=== PATIENT | male | born 1950 | race Caucasian/White ===

== ENCOUNTER → 2023-10-29 13:46 | Outpatient (REF) | payer MEDICARE, OTHER, SELFPAY ==
--- NOTE | 2023-10-29 16:09 | W.PN.UPDATE ---
Update Note
Progress Note Update
patient presented for stress echo today ordered at time of last office visit 04/2023. he was noted to be in aflutter, asymptomatic. CTSP in cardiac services to discuss. after discussion with patient regarding CVA risk, he is agreeable to start
eliquis 5mg BID. He will stop asa. He is rate controlled so will not add meds at this time. He reports some mild SOB with going up a hill on his walk with his dogs however otherwise remains active playing handball, tennis, and walking several miles
a day. He is without evidence of acute CHF at this time - reports no LE edema, weight gain. He was surprised to hear he was in aflutter today. He has had 3 prior ablations. He has been arranged for follow up with Rosa 11/04/23 at 10AM to discuss
further options.
== END ==
LOC: RCS 13:46
PROVIDERS: ATTENDING PHYSICIAN Internal Medicine Cardiovascular Disease
DX: I48.0 Paroxysmal atrial fibrillation (principal)
CPT/HCPCS: 93017; 93306; 93350

== ENCOUNTER 2023-11-29 09:04 | Day surgery (SDC) | payer MEDICARE, OTHER, SELFPAY ==
--- NOTE | 2023-11-29 10:34 | ITS.CL.CARDI ---
Zigzag Stitcher - Cardioversion
Cardioversion
Procedure Report:
Procedure: Direct current electrical cardioversion
Pre-operative diagnosis: Persistent atrial flutter
Post-operative diagnosis: Persistent atrial flutter status post DC cardioversion to sinus rhythm
Anesthesia: MAC
Attending Physician: Ezra Hernandez MD
Procedure Description: The patient was brought to the electrophysiology laboratory in the fasting state. Adherence to anticoagulation regimen was confirmed. Informed consent was obtained from the patient prior to the start of the procedure.
Electrodes were placed on the patient and connected to an external defibrillator. Monitoring of blood pressure, ECG tracings, and pulse oximetry was initiated. The pads were applied to the patient in the anterior and posterior positions. The patient
was sedated by the anesthesiologist. A 50 joule biphasic synchronized shock was delivered to the patient under MAC anesthesia. Sinus rhythm was successfully restored. The patient recovered uneventfully from MAC anesthesia. There were no immediate
post-procedure complications. The patient left the lab in good condition. The attending physician was present throughout the entire procedure.
Impression: Successful direct current cardioversion with scientologist of sinus rhythm after one 50 joule biphasic synchronized shock.
== END 2023-11-29 11:11 | disposition home or self-care (01) ==
LOC: CATH 09:04
PROVIDERS: ATTENDING PHYSICIAN Internal Medicine Cardiovascular Disease; FAMILY PHYSICIAN Family Medicine; OTHER PHYSICIAN Internal Medicine Cardiovascular Disease
DX: I48.92 Unspecified atrial flutter (principal); I48.0 Paroxysmal atrial fibrillation; I11.0 Hypertensive heart disease with heart failure; I50.9 Heart failure, unspecified; I34.0 Nonrheumatic mitral (valve) insufficiency; Z79.01 Long term (current) use of anticoagulants
CPT/HCPCS: 92960; 93005

== ENCOUNTER → 2024-07-09 09:00 | Outpatient (REF) | payer MEDICARE, OTHER, SELFPAY ==
[2024-07-09 11:13] LABS: % Basophils 1.7 % (0-2); % Eosinophils 3.1 % (0-6); % Immature Granulocytes 0.7 % (0-0.5); % Lymphocytes 27.3 % (20.5-51.1); % Monocytes 13.8 % (1.7-9.3); % Neutrophils 53.4 % (42.2-75.2); Absolute Basophils 0.1 10^3/uL (0-0.2); Absolute Eosinophils 0.1 10^3/uL (0-0.7); Absolute Lymphocytes 1.2 10^3/uL (1.2-3.4); Absolute Monocytes 0.6 10^3/uL (0.1-0.6); Absolute Neutrophils 2.3 10^3/uL (1.4-6.5); Hematocrit 41.3 % (39.0-52.0); Hemoglobin 14.7 g/dL (13.0-18.0); Mean Corp Hgb Conc. 35.6 g/dL (33.0-37.0); Mean Corpuscular Hgb 32.7 pg (27.0-31.0); Mean Corpuscular Volume 91.8 fL (80.0-94.0); Mean Platelet Volume 9.6 fL (7.4-10.4); Nucleated Red Blood Cells % 0 % (-); Platelet Count 233 10^3/uL (130-400); Red Cell Dist. Width 11.9 % (11.5-14.5); White Blood Cell Count 4.2 10^3/uL (4.8-10.8)
[2024-07-09 11:16] LABS: INR 0.81; PT 11.7 Sec (11.4-14.6)
[2024-07-09 11:25] LABS: ALT (SGPT) 43 U/L (0-50); AST (SGOT) 43 U/L (17-59); Albumin 4.3 g/dl (3.5-5.0); Alkaline Phosphatase 104 U/L (38-126); Blood Urea Nitrogen 20 mg/dl (9-20); Calcium 9.4 mg/dl (8.4-10.2); Carbon Dioxide 27 mmol/L (22-30); Chloride 104 mmol/L (98-107); Glucose 107 mg/dl (70-99); Potassium 4.9 mmol/L (3.5-5.1); Sodium 138 mmol/L (135-145); Total Bilirubin 0.3 mg/dl (0.2-1.3); Total Protein 6.9 g/dl (6.3-8.2); eGFR > 60.00
== END ==
LOC: SDSPAT 09:00
PROVIDERS: ATTENDING PHYSICIAN Internal Medicine Cardiovascular Disease
DX: I48.0 Paroxysmal atrial fibrillation (principal)
CPT/HCPCS: 36415; 80053; 83735; 85025; 85610; 86850; 86900; 86901; 93005

== ENCOUNTER 2024-08-05 10:37 | Day surgery (SDC) | payer MEDICARE, OTHER, SELFPAY ==
--- NOTE | 2024-07-09 10:26 | HPS.HSE ---
Family Physician
-
Family Physician: NO INTERVIEW UNKNOWN
Chief Complaint
-
Paroxysmal atrial fibrillation. Atypical atrial flutter.
History of Present Illness
The patient is a 74 year old male presenting today for paroxysmal atrial fibrillation. He was first diagnosed with this arrhythmia in the late . He does report a history of rapid heart beat and dyspnea noted with physical activity
secondary to this diagnosis. He has undergone multiple cardioversions and 3 pulmonary vein isolations for his arrhythmia. He is on no current pharmacological therapy but does report previously taking Toprol-XL and Propafenone as needed. He presented
for a stress echocardiogram in October 2023 and was noted to be in asymptomatic atrial flutter. It is recommended he proceed with recurrent pulmonary vein isolation at this time for his atrial arrhythmias. He will be restarted on Eliquis in
preparation for his procedure. His CHADS-VASc is notably 3. He denies any current complaints today such as chest pain, shortness of breath at rest, palpitations, nausea, vomiting, diarrhea, lightheadedness, dizziness, cough, sore throat, or fever.
Medical History
Past Medical History
Past Medical History: Reports Other
Additional Past Medical History:
1. Paroxysmal atrial fibrillation and atypical atrial flutter, status post cardioversion x5 and pulmonary vein isolation x3; restarted on Eliquis 07/09/2024 for oral anticoagulation.
2. Hypertension.
3. First degree AV block.
4. Right bundle branch block.
5. Congestive heart failure, preserved ejection fraction.
6. Mild mitral regurgitation.
7. Mild tricuspid regurgitation.
8. Irritable bowel syndrome.
9. Osteoarthritis, status post right total hip arthroplasty, 2002, bilateral total knee arthroplasty, 2009, and left total hip arthroplasty 2016.
10. Raynaud's disease.
11. MRSA positive nasal swab 2008.
12. Mild leukopenia.
Past Surgical History: Reports Other
Additional Past Surgical History:
1. Pulmonary vein isolation x3.
2. Cardioversion x5.
3. Transesophageal echocardiogram.
4. Bilateral total knee arthroplasty.
5. Right total hip arthroplasty.
6. Left total hip arthroplasty.
7. Left tibia-fibula repair.
8. Inguinal hernia repair.
9. Cystoscopy.
10. Colonoscopy x3.
Social History
Tobacco: Non-smoker
Alcohol: Other (He reportedly drinks 1 glass of wine weekly. )
Living: Other (He lives with his girlfriend in a 3 story home. )
Family History
Family History: Not pertinent
Allergies / Home Medications
Allergy/Medication List:
Home medications:
1. Eliquis 5 mg p.o. twice a day.
2. Ascorbic acid 1000 mg p.o. daily.
3. Ginkgo biloba 1 tablet p.o. daily.
4. Ginseng 1 dose p.o. daily.
5. Glucosamine 1,500 mg p.o. daily.
6. Lisinopril 20 mg p.o. daily.
7. Magnesium 1 tablet p.o. daily.
8. Mecobalamin 1 dose p.o. daily.
9. Multivitamin 1 tablet p.o. daily.
10. Potassium 1 dose p.o. daily.
11. Psyllium 1 dose p.o. daily.
Allergies: No known allergies.
Review of Systems
-
A 12 point ROS was completed and negative except as noted: Yes
Physical Exam
Vital Signs
Blood pressure 160/66. Heart rate 64. Respirations 18. Pulse ox 99% on room air.
Height 6 feet, 2 inches. Weight 102.2 kg. BMI 28.9.
Physical Exam
General: Well Developed, Well Nourished and No Apparent Distress
HEENT: NormoCephalic, Moist mucous membranes, Atraumatic and PERRLA
Respiratory: Clear
Cardiac: Regular Rhythm
GI: Soft, Non Tender and Non Distended
Musculoskeletal: No Edema and Normal Gait & Station
Skin: Warm and Dry
Neuro: AO x 3 and Nonfocal/grossly intact
Laboratory Results
-
DIAGNOSTIC STUDIES as of 07/09/2024: White blood cell count 4.2. Hemoglobin 14.7. Platelet count 233,000. PT 11.7. INR 0.81. Sodium 138. Potassium 4.9. BUN 20. Creatinine 0.8. Glucose 107. Calcium 9.4. Magnesium 2.0. AST 43. ALT 43. Albumin 4.3.
Type and screen B positive.
EKG 07/09/2024: Normal sinus rhythm.
Echocardiogram 10/29/2023: Normal left ventricular size, wall thickness, and systolic function. No regional wall motion abnormalities are seen. LV ejection fraction is 50%. Mild mitral regurgitation. Mild tricuspid regurgitation. Estimated pulmonary
artery pressure of 25-30 mmHg. No prior study available for comparison.
Nuclear stress test 10/29/2023: Normal stress echo imaging. No evidence of ischemia. Normal ST segment response to exercise. Atrial flutter/fibrillation at baseline. Patient last known to be in sinus rhythm. Average exercise tolerance.
Impression/Plan
-
IMPRESSION/PLAN:
1. Paroxysmal atrial fibrillation and atypical atrial flutter: The patient is in need of pulmonary vein isolation with Dr. Jose Dale on 08/05/2024. The benefits and risks of the procedure have been explained to the patient. The patient
understands these risks and wishes to proceed. He will begin oral anticoagulation with Eliquis starting 07/09/2024 and continue this without interruption prior to his ablation. A script for this medication with refills was sent to his pharmacy
07/09/2024. He will take no medications the morning of his procedure.
[2024-07-09 10:37] VITALS: BMI 28.9
[2024-08-05] VITALS (12 sets, daily range): BP systolic 129–159; BP diastolic 71–98; BMI 28.6
[2024-08-05 12:58] LABS: ACT-LR - POC 215 Seconds (116-155)
[2024-08-05 13:18] LABS: ACT-LR - POC 245 Seconds (116-155)
[2024-08-05 13:40] LABS: ACT-LR - POC 311 Seconds (116-155)
--- NOTE | 2024-08-05 17:16 | W.PN.UPDATE ---
Update Note
Progress Note Update
Pt seen post PFA. Right groin without ht/bleeding, non tender. Urinating without difficulty. Post EKG NSR w/inc RBBB, 80s, no acute changes. Resume eliquis tonight at usual time. Followup at [facility] as scheduled. Home later today if groin site/tele
remain stable.
--- NOTE | 2024-08-06 14:39 | ITS.CL.ABL ---
Band Sawmill Operator - Ablation
Ablation
Procedure Report:
ELECTROPHYSIOLOGIC STUDY AND POSSIBLE ABLATION
DATE: August 05, 2024
INDICATION:
Symptomatic Atrial Fibrillation and atrial flutter.
HISTORY: See H and P.
Symptomatic AF, poorly controlled with attempted medical therapy
PRESENTING RHYTHM: atrial flutter
HISTORY: See H and P.
Symptomatic AF, poorly controlled with attempted medical therapy.
'TIME-OUT': called and confirmed.
SEDATION/ANESTHESIA: provided via the anesthesia department using general anesthesia.
PROCEDURE:
Ultrasound Guidance with real-time visualization of needle insertion and vessel patency performed by ca for femoral venous Vascular Access. Images were taken and saved for the patient's permanent record. Imaging findings typical femoral venous
anatomy. Direct visualization of needle puncture into the femoral vein was observed and recorded.
A decapolar CS catheter was placed within the CS for mapping and pacing.
he was found to be in an atrial flutter at 220 ms with activation sequence proximal to distal in the coronary sinus catheter. Entrainment from the distal coronary sinus finds at outside the tachycardia circuit and entrainment from the proximal
coronary sinus findings within the tachycardia circuit.
The intracardiac ultrasound catheter was positioned in the RA for continuous intracardiac ultrasound imaging.
Heparin bolus and infusion to target ACT at 300 -350 seconds was administered.
the Dapper multipolar grid catheter was positioned in the right atrium to create an activation map. Activation is consistent with counterclockwise right atrial flutter. Furthermore entrainment from the lateral wall of the right atrium is within
the tachycardia circuit. Additionally entrainment from the cavotricuspid isthmus is within the tachycardia circuit. Next the fair R wave pulse field ablation catheter was substituted. Postelective field energy was delivered to the cavotricuspid
isthmus laterally. During creation of the CTI line, atrial flutter transition to atrial fibrillation. Next attention was turned to atrial fibrillation.Transseptal puncture was performed. This entailed advancing a sheath with dilator into the
superior vena cava and withdrawing both (monitoring intracardiac ultrasound, fluoroscopy and tip pressure) with the tip oriented toward the atrial septum. The fossa ovalis was engaged (indicated by sudden displacement of the sheath tip as well as
tenting of the fossa seen on intracardiac ultrasound).
The [employer] transseptal system was used. Left atrial catheter position was confirmed by echocardiographic imaging and fluoroscopy followed by RF delivery using the Correlix system resulting in successful LA access with pressure monitoring
demonstrating LA pressure waveforms (LA mean pressure 8 mm Hg). The sheath was advanced over the dilator and positioned in the left atrium.
The Kate Grid multipolar mapping catheter was initially positioned through the transseptal sheath for high density mapping.
Geometry and voltage mapping was performed using the Kate multipolar grid catheter. Ensite-X was utilized for three-dimensional electroanatomical mapping.
A 3-D map was created using Ensite-X in Voxel mode. A 3-D reconstructed CT image was compared to the 3-D Navex map to assist in anatomic evaluation, mapping and ablation.
Review of records from his previous ablation at [facility] notes that posterior wall ablation was performed. Mapping today demonstrates reconnection of the left superior pulmonary vein along the dome posteriorly and reconnection
of the posterior wall of the left atrium. The [employer] PFA catheter and system was used for cardiac ablation. Catheter positioning was guided and confirmed using both I.C.E. and fluoroscopy.
ablation strategy consisted of isolation of the left superior pulmonary vein and isolation of the posterior wall of the left atrium as an additional ablation lesion set. At the end of ablation mapping and pacing from the multipolar grid catheter
with a high density map finds electrical isolation both entrance and exit block at each of the pulmonary veins (LSPV, LIPV, RSPV, RIPV) as well as entrance and exit block at the posterior wall of the left atrium. Programmed electrical stimulation
was include burst atrial pacing as well as delivery of atrial decremental atrial stimuli failed to induce any arrhythmias. Catheters were withdrawn from the left atrium. The multipolar Kate grid catheter was repositioned in the right atrium for
mapping of the CTI in sinus rhythm. This finding In the CTI line. The Brumley pulsed field ablation catheter was then repositioned in the right atrium where additional energy was delivered at the CTI at approximately 7 o'clock position. Of note
nitroglycerin was delivered during any applications at the right atrium, both with the first attempted CTI prior to left atrial mapping and with this attempt at CTI ablation. There is no evidence of coronary spasm. No complications noted. With
delivery of pulse electric field ablation, bidirectional block is now observed both by activation mapping and differential pacing.
I.C.E. :
Pre-Ablation Post-Ablation
LVEF: 55 % 55 %
WMA: None None
Pericardial effusion: None None
COMPLICATIONS:
SUMMARY:
- Mapping and ablation to isolate the PVs
- Additional AF ablation set after PVI ( left atrial posterior wall ablation. )
- Mapping and ablation of second tachycardia ( Right atrial flutter)
- 3-D Electroanatomical Mapping
- Intracardiac Ultrasound
- Ultrasound guidance for vascular access
Post ablation, I discussed today's findings and results with the patient's friend, Angelita.
RECOMMENDATIONS:
- Observe in monitored bed.
- Maintain oral anticoagulation.
== END 2024-08-05 18:54 | disposition home or self-care (01) ==
LOC: CATH 10:37
PROVIDERS: ATTENDING PHYSICIAN Internal Medicine Cardiovascular Disease
DX: I48.0 Paroxysmal atrial fibrillation (principal); I48.4 Atypical atrial flutter; I11.0 Hypertensive heart disease with heart failure; I50.32 Chronic diastolic (congestive) heart failure; I44.0 Atrioventricular block, first degree; I45.10 Unspecified right bundle-branch block; I08.1 Rheumatic disorders of both mitral and tricuspid valves; K58.9 Irritable bowel syndrome, unspecified; M19.90 Unspecified osteoarthritis, unspecified site; Z96.653 Presence of artificial knee joint, bilateral; I73.00 Raynaud's syndrome without gangrene; Z86.14 Personal history of Methicillin resistant Staphylococcus aureus infection; D72.819 Decreased white blood cell count, unspecified; Z96.643 Presence of artificial hip joint, bilateral; Z79.899 Other long term (current) drug therapy; Z79.01 Long term (current) use of anticoagulants
CPT/HCPCS: C1730; C1894; C1732; C1759; C1892; 85347; 86900; 86901; 93005; 93655; 93656; 93657; C1733; C1766

== ENCOUNTER 2024-10-27 07:00 | Day surgery (SDC) | payer MEDICARE, OTHER, SELFPAY ==
[2024-10-27 07:26] VITALS: BMI 27.7
--- NOTE | 2024-10-27 08:42 | ITS.CL.CARDI ---
Skylights Assembler - Cardioversion
Cardioversion
Procedure Report:
Date of Procedure: 10/27/24
Procedure: Cardioversion
Indication: Symptomatic atrial flutter
Performing Physician: Jakob Pulido MD
Technique: The patient was brought to the holding area. Signed informed consent was obtained. A time out was called and performed. The patient was anesthetized by the anesthesia service. Anticoagulation status was reviewed and appropriate. R2 pads
were placed anteriorly and posteriorly. A 200 J synchronized biphasic shock restored normal sinus rhythm without significant bradycardia. There were no complications.
Conclusion: Uncomplicated cardioversion from atrial flutter to sinus rhythm.
Recommendation: Routine post cardioversion care. Continue terminal block assembler anticoagulation.
== END 2024-10-27 09:45 | disposition home or self-care (01) ==
LOC: CATH 07:00
PROVIDERS: ATTENDING PHYSICIAN Internal Medicine Cardiovascular Disease; OTHER PHYSICIAN Internal Medicine Cardiovascular Disease
DX: I48.0 Paroxysmal atrial fibrillation (principal); I48.92 Unspecified atrial flutter; I10 Essential (primary) hypertension; Z79.01 Long term (current) use of anticoagulants
CPT/HCPCS: 92960; 93005

== ENCOUNTER → 2025-02-01 09:51 | Outpatient (REF) | payer MEDICARE, OTHER, SELFPAY ==
[2025-02-01 10:38] LABS: Hematocrit 40.4 % (39.0-52.0); Hemoglobin 13.9 g/dL (13.0-18.0); Mean Corp Hgb Conc. 34.4 g/dL (33.0-37.0); Mean Corpuscular Volume 95.1 fL (80.0-94.0); Nucleated Red Blood Cells % 0 % (-); Platelet Count 214 10^3/uL (130-400); Red Cell Dist. Width 12.3 % (11.5-14.5)
[2025-02-01 10:45] LABS: INR 0.91; PT 12.8 Sec (11.4-14.6)
[2025-02-01 11:05] LABS: ALT (SGPT) 29 U/L (0-50); AST (SGOT) 31 U/L (17-59); Albumin 4.3 g/dl (3.5-5.0); Alkaline Phosphatase 72 U/L (38-126); Blood Urea Nitrogen 22 mg/dl (9-20); Calcium 9.4 mg/dl (8.4-10.2); Carbon Dioxide 25 mmol/L (22-30); Chloride 106 mmol/L (98-107); Glucose 95 mg/dl (70-99); Magnesium 2.0 mg/dl (1.6-2.3); Potassium 5.0 mmol/L (3.5-5.1); Sodium 138 mmol/L (135-145); Total Protein 6.9 g/dl (6.3-8.2); eGFR > 60.00
== END ==
LOC: SDSPAT 09:51
PROVIDERS: ATTENDING PHYSICIAN Internal Medicine Cardiovascular Disease; FAMILY PHYSICIAN Family Medicine
DX: I48.0 Paroxysmal atrial fibrillation (principal)
CPT/HCPCS: 36415; 80053; 83735; 85025; 85610; 86850; 86900; 86901; 93005

== ENCOUNTER 2025-02-08 08:02 | Day surgery (SDC) | payer MEDICARE, OTHER, SELFPAY ==
[2025-02-01 09:59] VITALS: BMI 28.3
[2025-02-08] VITALS (22 sets, daily range): BP systolic 118–147; BP diastolic 49–84; BMI 29.2
--- NOTE | 2025-02-08 10:29 | ITS.CL.ABL ---
Lock Master - Ablation
Ablation
Procedure Report:
ELECTROPHYSIOLOGIC STUDY AND POSSIBLE ABLATION
DATE: February 08, 2025
Primary Care Provider: Dr Arnoldo Robles
INDICATION:
Symptomatic Atrial Fibrillation and atrial tachycardia/flutter.
Paroxysmal
HISTORY: See H and P.
Symptomatic AF, poorly controlled with attempted medical therapy.
He has recurred with symptomatic atrial flutter, atypical flutter since his ablation.
He is s/p pulsed field (Farapulse) PVI on 08/05/2024 targeting atrial fibrillation and also mapping and ablation of typical right atrial flutter.
Previously
� - PVI only February 2009 at [place]
� - Left atrial posterior wall ablation February 2017 at [facility]
He presents now for Affera PVI targeting atypical atrial flutter and reassessing adequacy of PVI, posterior wall ablation and prior CTI
HAS-BLED:1
Age
CHADSVASc: 3
HTN
Age
PRESENTING RHYTHM: SR
HISTORY: See H and P.
Symptomatic AF, poorly controlled with attempted medical therapy.
ANTICOAGULATION: Apixaban 5 mg twice daily
'TIME-OUT': called and confirmed.
SEDATION/ANESTHESIA: provided via the anesthesia department using general anesthesia.
PROCEDURE:
Ultrasound Guidance with real-time visualization of needle insertion and vessel patency performed by oh for femoral venous Vascular Access.
Under real-time US guidance, the needle was advanced with negative pressure into the vein. The needle was seen entering the vessel lumen with a good return of dark red flow, the syringe was removed, non-pulsatile, dark red blood low was noted and
the wire was passed without difficulty, then the needle was removed. US confirmed the wire was in the vein, not going into an artery,
Images were taken and saved for the patient's permanent record. Imaging findings typical femoral venous anatomy. Direct visualization of needle puncture into the femoral vein was observed and recorded.
A decapolar CS catheter was placed within the CS for mapping and pacing.
The intracardiac ultrasound catheter was positioned in the RA for continuous intracardiac ultrasound imaging.
Heparin bolus and infusion to target ACT at 300 -350 seconds was administered. Transseptal puncture was performed. This entailed advancing a sheath with dilator into the superior vena cava and withdrawing both (monitoring intracardiac ultrasound,
fluoroscopy and tip pressure) with the tip oriented toward the atrial septum. The fossa ovalis was engaged (indicated by sudden displacement of the sheath tip as well as tenting of the fossa seen on intracardiac ultrasound).
Transseptal puncture was performed. Left atrial catheter position was confirmed by echocardiographic imaging, pressure monitoring (LA mean pressure 8 mm Hg) and fluoroscopy. The sheath was advanced over the dilator and positioned in the left
atrium.
The Janraina multipolar mapping/ablation Sphere-9 catheter was positioned through the transseptal sheath for high density mapping.
Geometry and voltage mapping was performed using the Nemedia mapping system for three-dimensional electroanatomical mapping.
Catheter positioning was guided and confirmed using both I.C.E. and fluoroscopy.
High density electroanatomical three-dimensional mapping demonstrated 4 distinct pulmonary vein LSPV, LIPV, RSPV, RIPV.
There is reconnection at the anterior quadrant of the right superior pulmonary vein as well as the posterior superior quadrant of the left superior pulmonary vein.
Pulsed electric field energy delivery via the sphere 9 catheter reisolated the pulmonary veins.
After accomplishing pulmonary venous isolation, mapping identified additional areas likely to be extra PV contributors to atrial fibrillation. These areas demonstrated patchy low voltage as well as complex fractionated electrograms. These areas can
be sites for the formation of rotors which can drive and maintain atrial fibrillation. These areas are known to be significant contributors to initiation and perpetuation of atrial fibrillation.
Additional energy applications/additional ablation sets targeted extra PV contributors to atrial fibrillation.
Targets for additional PFA ablation included:
LA posterior wall targeted with pulsed electric field energy isolating the posterior wall of the left atrium
He has a history of atypical flutter, left atrial flutter.
He demonstrated brief episodes of nonsustained atrial tachyarrhythmia, left-sided, short duration and unable to map fully but appeared to be rotating around the right superior pulmonary vein through the cayetano between the right superior and right
inferior pulmonary vein.
A combination of radiofrequency energy delivery as well as pulsed electric field energy delivery at this location eliminated the channel of tissue allowing the circuit and no tachyarrhythmia could be further induced
Programmed electrostimulation including burst atrial pacing as well the delivery of decremental extrastimuli down to atrial effective refractory period and no sustained arrhythmias could be induced.
I.C.E. :
Pre-Ablation Post-Ablation
LVEF: 55 % 55 %
WMA: none none
Pericardial effusion: none none
COMPLICATIONS:
none
SUMMARY:
- Mapping and ablation to isolate the PVs resulting in electrical isolation of the pulmonary veins
- Additional AF ablation sets X 1 after PVI (LA posterior wall) resulting in elimination of the targeted extra PV contributors to atrial fibrillation (Post wall)
- Mapping and ablation of second tachycardia (left atrial macro reentrant flutter rotating around the right superior pulmonary vein) rendering it noninducible with programmed electrical stimulation
- 3-D Electroanatomical Mapping
- Intracardiac Ultrasound
- Ultrasound guidance for vascular access
Post ablation, I discussed today's findings and results with the patient's significant other, Roselia.
RECOMMENDATIONS:
- Observe in monitored bed.
- Maintain oral anticoagulation.
- Office visit with Marisol Gonzalez NP May 21, 2025
- Continue cardiovascular care with me.
Copy to:
Dr Arnoldo Robles
[2025-02-08 11:18] LABS: ACT-LR - POC 276 Seconds (116-155)
[2025-02-08 11:37] LABS: ACT-LR - POC 290 Seconds (116-155)
--- NOTE | 2025-02-08 15:55 | W.PN.UPDATE ---
Update Note
Progress Note Update
Pt seen post PFA. Right groin site without ht/bleeding, oob ambulating, urinating without difficulty. Post EKG NSR w/1st deg AVB, incRBBB as before. Resume eliquis tonight at usual time. Followup at [facility] as scheduled. Home today if groin site/tele
remain stable.
== END 2025-02-08 17:00 | disposition home or self-care (01) ==
LOC: CATH 08:02
PROVIDERS: ATTENDING PHYSICIAN Internal Medicine Cardiovascular Disease; FAMILY PHYSICIAN Surgery
DX: I48.0 Paroxysmal atrial fibrillation (principal); I48.4 Atypical atrial flutter; I10 Essential (primary) hypertension; K58.9 Irritable bowel syndrome, unspecified; M19.90 Unspecified osteoarthritis, unspecified site; I73.00 Raynaud's syndrome without gangrene; Z86.14 Personal history of Methicillin resistant Staphylococcus aureus infection; Z79.01 Long term (current) use of anticoagulants; Z79.899 Other long term (current) drug therapy; I45.10 Unspecified right bundle-branch block; I47.19 Other supraventricular tachycardia; I49.1 Atrial premature depolarization; Z96.659 Presence of unspecified artificial knee joint
CPT/HCPCS: C1894; C1733; C1769; C1766; C1730; 85347; 93005; 93655; 93656; 93657